=== PATIENT | male | born 1955 | race African-American/Black ===

== ENCOUNTER 2017-09-04 18:52 | Emergency (ER) | payer OTHER ==
[2017-09-04] MEDS ORDERED: TETRACAINE HCL 0.5% OPH SOLN 2 ML OS ONE (19:47)
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
[2017-09-04] MEDS ORDERED: CYCLOBENZAPRINE HCL 10 MG TABLET PO ONE (20:31)
[2017-09-04 20:59] VITALS: BP 123/73
[2017-09-04] MEDS ORDERED: POLYMYXIN B SULFATE/TMP OPH SOLN (10 ML/ER DISP) OS SCH (21:00)
== END 2017-09-04 20:55 | disposition home or self-care (01) ==
LOC: ER 18:52
DX: S00.83XA Contusion of other part of head, initial encounter (principal); S05.02XA Injury of conjunctiva and corneal abrasion without foreign body, left eye, initial encounter; M54.5 Low back pain; H57.12 Ocular pain, left eye; V89.2XXA Person injured in unspecified motor-vehicle accident, traffic, initial encounter; Y92.414 Local residential or business street as the place of occurrence of the external cause; Z87.891 Personal history of nicotine dependence; E78.00 Pure hypercholesterolemia, unspecified; I10 Essential (primary) hypertension; E11.9 Type 2 diabetes mellitus without complications
CPT/HCPCS: 99283; J3490